=== PATIENT | female | born 2000 | race Caucasian/White ===

== ENCOUNTER 2024-02-27 07:17 | Emergency (ER) | payer OTHER ==
[~2024-02-27] VITALS: Ht 307.3 cm; Wt 64.6 kg
[2024-02-27] MEDS ORDERED: SULF1TAB49 PO ×2 (09:07→17:31)
[2024-02-27 11:29] LABS: BASOPHILS % (AUTO) 0.5 % (0-1); EOSINOPHILS # (AUTO) 0.1 X10'3 (0-0.9); EOSINOPHILS % (AUTO) 0.7 % (0-6); HEMATOCRIT 41.3 % (35.0-45.0); LYMPHOCYTES # (AUTO) 1.7 X10'3 (1.1-4.8); LYMPHOCYTES % (AUTO) 19.2 % (21-51); MEAN CORPUSCULAR HEMOGLOBIN 31.2 PG (27.0-31.0); MEAN CORPUSCULAR HGB CONC 33.9 g/dL (33.0-36.5); MEAN CORPUSCULAR VOLUME 92.1 FL (78-98); MEAN PLATELET VOLUME 7.7 FL (7.4-10.4); MONOCYTES # (AUTO) 0.5 X10'3 (0-0.9); MONOCYTES % (AUTO) 5.2 % (2-12); NEUTROPHILS # (AUTO) 6.8 X10'3 (1.8-7.7); NEUTROPHILS % (AUTO) 74.4 % (42-75); PLATELET COUNT 273 X10'3 (140-440); RED BLOOD COUNT 4.48 X10'6 (4.20-5.60); RED CELL DISTRIBUTION WIDTH 13.2 % (11.5-14.5); WHITE BLOOD COUNT 9.1 X10'3 (4.5-11.0)
[2024-02-27 12:21] LABS: ALBUMIN 3.6 G/DL (3.4-5.0); ANION GAP 7 (8-16); BLOOD UREA NITROGEN 8 MG/DL (7-18); BUN/CREATININE RATIO 12.5 (10.0-20.0); CHLORIDE 102 MMOL/L (99-107); CREATININE 0.64 MG/DL (0.40-0.90); ETHANOL < 10 MG/DL (<10); GLUCOSE 113 MG/DL (70-104); POTASSIUM 3.9 MMOL/L (3.5-5.1); SODIUM 138 MMOL/L (135-145); THYROID STIMULATING HORMONE 2.51 ulU/ml (0.34-4.50); TOTAL CARBON DIOXIDE 28.7 MMOL/L (24-32); eCRCL 102 ML/MIN; eGFR > 90 ML/MIN
[2024-02-27 13:44] LABS: URINE HCG NEGATIVE (NEG)
[2024-02-27 14:00] LABS: URINE AMPHETAMINE SCREEN POSITIVE (Neg); URINE BARBITUATE SCREEN NEGATIVE (Neg); URINE BENZODIAZEPINES SCREEN NEGATIVE (Neg); URINE CANNABINOID SCREEN POSITIVE (Neg); URINE COCAINE SCREEN NEGATIVE (Neg); URINE METHADONE SCREEN NEGATIVE (Neg); URINE OPIATE SCREEN NEGATIVE (Neg); URINE PHENCYCLIDINE SCREEN NEGATIVE (Neg)
[2024-02-27 14:03] LABS: BILIRUBIN,URINE NEGATIVE (Neg); CLARITY,URINE CLOUDY (Clear); COLOR,URINE YELLOW (Yellow); GLUCOSE, URINE NEGATIVE (Neg); KETONES,URINE NEGATIVE (Neg); LEUKOCYTE ESTERASE ,URINE LARGE (Neg); NITRITES, URINE POSITIVE (Neg); OCCULT BLOOD,URINE TRACE-INTACT (Neg); PROTEIN,URINE NEGATIVE (Neg); UROBILINOGEN,URINE 0.2 E.U/dL (0.2-1.0)
[2024-02-27] MEDS: LORazepam 2 mg/ml vial IM ONE (14:10)
[2024-02-27] MEDS: haloperidol lactate 5mg/ml inj IM ONE (14:10)
[2024-02-27] MEDS: diphenhydrAMINE 50 mg/ml inj IM ONE (14:10)
[2024-02-27 14:28] LABS: UA COLLECTION TYPE CLN CATCH MIDSTREAM
[2024-02-27 14:35] LABS: RBC,URINE 0-2 /HPF (0-2); TRICHOMONAS,URINE FEW /HPF (NEGATIVE)
[2024-02-27 14:36] LABS: BACTERIA,URINE 3+ /HPF (Neg)
[2024-02-27 14:37] LABS: SQUAMOUS EPITHELIAL CELL,UR FEW /LPF (FEW); TRANSITIONAL EPI CELLS,URINE FEW /HPF
[2024-02-27 14:42] LABS: WBC CLUMPS,URINE MANY /HPF (NEGATIVE)
[2024-02-27 18:20] VITALS: BP 128/94; PULSE 72; TEMP 97.6; O2SAT 100
[2024-02-27 18:52] VITALS: RESP 16
[2024-02-27] MEDS: sulfamethoxazole/trimethoprim DS (800/160mg) tablet PO SCH (20:00)
[2024-02-27] MEDS: ibuprofen tablet 400 MG TABLET PO ONE (22:14)
== END 2024-02-27 17:35 ==
LOC: ER 07:18
DX: L03.116 Cellulitis of left lower limb (principal); Z20.822 Contact with and (suspected) exposure to COVID-19; Z79.2 Long term (current) use of antibiotics
CPT/HCPCS: 36415; 80048; 80305; 80320; 81001; 81025; 84443; 85025; 87811; 99285